=== PATIENT | male | born 2000 | race African-American/Black ===

== ENCOUNTER 2020-05-18 10:18 | Emergency (ER) | payer MEDICAID, OTHER ==
[2020-05-18 10:30] VITALS: BP 107/67
--- NOTE | 2020-05-18 10:47 | ER Document Report ---
ED Respiratory Problem - General Chief Complaint: Rib Pain Stated Complaint: RIB PAIN Time Seen by Provider: 05/18/20 10:40 Primary Care Provider: ALMA AVERY MD [EMERITUS] - Follow up as needed Notes: CHIEF COMPLAINT: Right-sided chest discomfort with breathing HPI: 20-year-old male who is otherwise healthy presenting to the emergency department for evaluation of right-sided chest discomfort with breathing today. [place] fine yesterday. States he had an anxiety attack 2 days ago and EMS was called but once they talk to the patient he began to feel better. No trauma. No fever no cough no recent illness. Patient states that he is not short of breath. Patient states he does not actually have a pain but feels like he just has to take a deeper breath to catch his breath. No abdominal pain nausea vomiting. ROS: See HPI - all other systems were reviewed and are otherwise negative Constitutional: no fever Eyes: no drainage, no blurred vision ENT: no runny nose, no sore throat Cardiovascular: + chest pain Resp: no SOB, no cough GI: no vomiting, no diarrhea, no abdominal pain : no dysuria Integumentary: no rash Allergy: no hives Musculoskeletal: no extremity pain or swelling Neurological: no numbness/tingling, no weakness MEDICATIONS: I agree with the patient medications as charted by the RN. ALLERGIES: I agree with the allergies as charted by the RN. PAST MEDICAL HISTORY/PAST SURGICAL HISTORY: Reviewed and agree as charted by RN. SOCIAL HISTORY: Reviewed and agree as charted by RN. FAMILY HISTORY: No significant familial comorbid conditions directly related to patient complaint EXAM: Reviewed vital signs as charted by RN. CONSTITUTIONAL: Alert and oriented and responds appropriately to questions. Well-appearing; well-nourished HEAD: Normocephalic; atraumatic EYES: PERRL; Conjunctivae clear, sclerae non-icteric ENT: normal nose; no rhinorrhea; moist mucous membranes; pharynx without lesions noted, no uvula edema or deviation, no tonsillar hypertrophy, phonation normal NECK: Supple without meningismus; non-tender; no cervical lymphadenopathy, no masses CARD: RRR; no murmurs, no clicks, no rubs, no gallops; symmetric distal pulses RESP: Normal chest excursion without splinting or tachypnea; breath sounds clear and equal bilaterally; no wheezes, no rhonchi, no rales, pulse oximetry 99% on room air not hypoxic. No reproducible pain on palpation of the chest wall ABD/GI: Normal bowel sounds; non-distended; soft, non-tender, no rebound, no guarding; no palpable organomegaly or masses. BACK: The back appears normal and is non-tender to palpation, there is no CVA tenderness EXT: Normal ROM in all joints; non-tender to palpation; no cyanosis, no effusions, no edema SKIN: Normal color for age and race; warm; dry; good turgor; no acute lesions noted NEURO: Moves all extremities equally; Motor and sensory function intact PSYCH: The patient's mood and manner are appropriate. Grooming and personal hygiene are appropriate. MDM: 20-year-old otherwise healthy male presenting for feeling like he needs to take a deeper breath in today. No fever no cough lung sounds are clear to auscultation. No reproducible pain on palpation. Will obtain chest x-ray to evaluate for pneumothorax although patient really does not describe discomfort or pain or dyspnea. If chest x-ray negative will refer to PCP for follow-up. Patient reports an asthma history as a child - Related Data Allergies/Adverse Reactions: Shellfish * [Shellfish] Allergy (Verified 05/18/20 10:40) Past Medical History - Social History Smoking Status: Current Every Day Smoker Drug Abuse: Marijuana Family History: None Pulmonary Medical History: Reports: Hx Asthma - Immunizations Immunizations up to date: Yes Physical Exam - Vital signs Vitals: Temp Pulse Resp BP Pulse Ox 98.0 F 61 18 107/67 100 05/18/20 10:05/18/20 10:05/18/20 10:05/18/20 10:28 05/18/20 10:28 Course - Re-evaluation Re-evalutation: 05/18/20 11:07 Chest x-ray negative for acute findings I will write the patient for an albuterol inhaler given his prior asthma history although his lung sounds are clear today - Vital Signs Vital signs: Temp Pulse Resp BP Pulse Ox 98.0 F 61 18 107/67 100 05/18/20 10:28 05/18/20 10:28 05/18/20 10:28 05/18/20 10:28 05/18/20 10:28 Discharge - Discharge Clinical Impression: Respiratory abnormality, unspecified Condition: Stable Disposition: HOME, SELF-CARE Additional Instructions: Use the albuterol inhaler 2 puffs every 4 hours as needed for any shortness of breath. Follow-up with your primary care provider for reevaluation of your symptoms return for fever or significant shortness of breath Prescriptions: Albuterol Sulfate [Proair HFA Inhalation Aerosol 8.5 gm MDI] 2 puff IH Q4H PRN #1 mdi PRN Reason: Referrals: ALMA AVERY MD [EMERITUS] - Follow up as needed
--- NOTE | 2020-05-18 11:06 | RADIOLOGY REPORT (SQ) ---
EXAM DESCRIPTION: CHEST 2 VIEWS IMAGES COMPLETED DATE/TIME: 05/18/2020 10:50 am REASON FOR STUDY: right chest pain COMPARISON: None. TECHNIQUE: Frontal and lateral radiographic views of the chest acquired. NUMBER OF VIEWS: Two view. LIMITATIONS: None. FINDINGS: LUNGS AND PLEURA: No opacities, masses or pneumothorax. No pleural effusion. MEDIASTINUM AND HILAR STRUCTURES: No masses or contour abnormalities. HEART AND VASCULAR STRUCTURES: Heart normal size. No evidence for failure. BONES: No acute findings. HARDWARE: None in the chest. OTHER: No other significant finding. IMPRESSION: NO SIGNIFICANT RADIOGRAPHIC FINDING IN THE CHEST. TECHNICAL DOCUMENTATION: JOB ID: [id number] 2010 [employer]- All Rights Reserved Reading location - IP/workstation name: [email or web address]
== END 2020-05-18 11:10 | disposition home or self-care (01) ==
LOC: ER 10:18
DX: J45.909 Unspecified asthma, uncomplicated (principal); F17.200 Nicotine dependence, unspecified, uncomplicated; F12.10 Cannabis abuse, uncomplicated; Z91.013 Allergy to seafood
CPT/HCPCS: 71046; 99283

== ENCOUNTER 2020-05-29 19:15 | Emergency (ER) | payer SELFPAY ==
--- NOTE | 2020-05-29 19:55 | ER Document Report ---
ED Medical Screen (RME) - General Chief Complaint: Chest Pain Stated Complaint: CHEST PAIN Time Seen by Provider: 05/29/20 19:47 Mode of Arrival: Medic Information source: Patient Notes: 20-year-old male with history of asthma presenting via EMS for chest pain that began last night. Patient reports right-sided chest pain feels like a pressure. He states it has been intermittent. There are no associated symptoms. Patient denies any nausea, vomiting, shortness of breath, episodes of diaphoresis. The pain does not radiate. He has never had this pain before. The pain is worse with palpation. He denies any recent heavy lifting. Lung sounds clear and equal bilaterally. Patient is in no acute distress. I have greeted and performed a rapid initial assessment of this patient. A co mprehensive ED assessment and evaluation of the patient, analysis of test results and completion of the medical decision making process will be conducted by additional ED providers. I have specifically instructed the patient or family members with the patient to immediately return to any nursing staff should anything change in the patient's condition or with their chief complaint. - Related Data Allergies/Adverse Reactions: Shellfish * [Shellfish] Allergy (Verified 05/18/20 10:40) Past Medical History Pulmonary Medical History: Reports: Hx Asthma - Immunizations Immunizations up to date: Yes Physical Exam - Vital signs Vitals: Temp Pulse Resp BP Pulse Ox 98.0 F 58 L 16 123/81 100 05/29/20 19:41 05/29/20 19:41 05/29/20 19:41 05/29/20 19:41 05/29/20 19:41 Course - Vital Signs Vital signs: Temp Pulse Resp BP Pulse Ox 98.0 F 58 L 16 123/81 100 05/29/20 19:41 05/29/20 19:41 05/29/20 19:41 05/29/20 19:41 05/29/20 19:41
[2020-05-29 20:19] LABS: ABSOLUTE EOSINOPHILS # (AUTO) 0.1 10^3/uL (0.0-0.6); ABSOLUTE LYMPHOCYTES (AUTO) 1.6 10^3/uL (0.5-4.7); ABSOLUTE MONOCYTES (AUTO) 0.3 10^3/uL (0.1-1.4); BASOPHILS % (AUTO) 0.8 % (0-2); EOSINOPHILS % (AUTO) 2.2 % (0-6); HEMATOCRIT 41.7 % (37.9-51.0); HEMOGLOBIN 14.1 g/dL (13.5-17.0); LYMPHOCYTES % (AUTO) 51.9 % (13-45); MEAN CORPUSCULAR HEMOGLOBIN 29.5 pg (27.0-33.4); MEAN CORPUSCULAR HGB CONC 33.8 g/dL (32.0-36.0); MEAN CORPUSCULAR VOLUME 87 fl (80-97); MONOCYTES % (AUTO) 10.9 % (3-13); PLATELET COUNT 231 10^3/uL (150-450); RED BLOOD COUNT 4.78 10^6/uL (4.35-5.55); RED CELL DISTRIBUTION WIDTH 14.2 % (11.5-14.0); SEGMENTED NEUTROPHILS % (AUTO) 34.2 % (42-78); TOTAL CELLS COUNTED % (AUTO) 100 %
--- NOTE | 2020-05-29 20:33 | RADIOLOGY REPORT (SQ) ---
EXAM DESCRIPTION: X-RAY CHEST- two views CLINICAL HISTORY: Chest pain COMPARISON: May 18, 2020 TECHNIQUE: Two views of the chest. FINDINGS: There are no discrete air space infiltrates, pneumothoraces or pleural effusions. The pulmonary vascularity is normal. The cardiomediastinal silhouette is normal in size. No suspicious lytic or blastic osseous lesions are identified. Scoliotic curvature of the thoracic spine is grossly stable when compared to prior study. IMPRESSION: There are no acute lung parenchymal findings.
[2020-05-29 20:36] LABS: ALBUMIN 4.4 g/dL (3.5-5.0); ALKALINE PHOSPHATASE 75 U/L (38-126); ANION GAP 8 (5-19); ASPARTATE AMINO TRANSFERASE 30 U/L (17-59); BILIRUBIN,DIRECT 0.2 mg/dL (0.0-0.4); BILIRUBIN,TOTAL 0.3 mg/dL (0.2-1.3); BLOOD UREA NITROGEN 10 mg/dL (7-20); CALCIUM 9.8 mg/dL (8.4-10.2); CARBON DIOXIDE 29 mmol/L (22-30); CHLORIDE 101 mmol/L (98-107); GLUCOSE 89 mg/dL (75-110); POTASSIUM 4.3 mmol/L (3.6-5.0); TOTAL PROTEIN 7.6 g/dL (6.3-8.2)
[2020-05-29] MEDS ORDERED: METHOCARBAMOL 750 MG TABLET PO ONE (23:33)
--- NOTE | 2020-05-29 23:36 | ER Document Report ---
ED General - General Chief Complaint: Chest Pain Stated Complaint: CHEST PAIN Time Seen by Provider: 05/29/20 19:47 Primary Care Provider: JIMBO OCHOA MD [HONORARY] - Follow up as needed Mode of Arrival: Medic - HPI Quality of pain: Other - See HPI Context: This is a 20-year-old male with a history of asthma presenting to the emergency department complaining of right-sided chest pain that has been present for approximately 2 days. Patient describes the pain as sharp and intermittent, and rates it as a 3 out of 5 in terms of severity. Patient states he has not had pain like this in the past. Patient denies history of spontaneous pneumothorax, history of PE. Patient states that he is not done any heavy lifting or incurred any trauma recently that might account for his symptoms. Patient denies exacerbating or mitigating factors. Patient denies fever, chills, wheezing, shortness of breath, history of COVID-19 infection, known exposure to persons positive for Covid 19 or known exposure to persons under investigation for COVID-19. Associated symptoms: Other - See HPI Exacerbated by: Other - See HPI Relieved by: Other - See HPI Similar symptoms previously: No - Related Data Allergies/Adverse Reactions: Shellfish * [Shellfish] Allergy (Verified 05/18/20 10:40) Home Medications: albuterol Past Medical History - General Information source: Patient - Social History Smoking Status: Former Smoker Chew tobacco use (# tins/day): No Frequency of alcohol use: None Drug Abuse: None Lives with: Family Family History: None, Reviewed & Not Pertinent Patient has suicidal ideation: No Patient has homicidal ideation: No Pulmonary Medical History: Reports: Hx Asthma - Immunizations Immunizations up to date: Yes Review of Systems - Review of Systems Constitutional: No symptoms reported EENT: No symptoms reported Cardiovascular: Chest pain Respiratory: No symptoms reported Gastrointestinal: No symptoms reported Genitourinary: No symptoms reported Male Genitourinary: No symptoms reported Musculoskeletal: No symptoms reported Skin: No symptoms reported Hematologic/Lymphatic: No symptoms reported Neurological/Psychological: No symptoms reported -: Yes All other systems reviewed and negative Physical Exam - Vital signs Vitals: Temp Pulse Resp BP Pulse Ox 98.0 F 58 L 16 123/81 100 05/29/20 19:41 05/29/20 19:41 05/29/20 19:41 05/29/20 19:41 05/29/20 19:41 - Notes Notes: CONSTITUTIONAL [Vital signs reviewed, Patient appears comfortable, Alert and oriented X 3, Normal stature.] HEAD [Atraumatic, Normocephalic.] EYES [Eyes are normal to inspection, No discharge from eyes, Extraocular muscles intact, Sclera are normal, Conjunctiva are normal.] ENT Nose examination normal, Mouth normal to inspection.] NECK [Normal ROM, No jugular venous distention, No meningeal signs, .] RESPIRATORY CHEST [Chest is nontender, Breath sounds normal, No respiratory distress.] CARDIOVASCULAR [RRR, No murmurs, Normal S1 S2, No rub, No gallop.] ABDOMEN [Abdomen is nontender, No pulsatile masses, No other masses, Bowel sounds normal, No distension, No peritoneal signs, No hernias.] BACK [There is no CVA Tenderness, There is no tenderness to palpation, Normal inspection.] UPPER EXTREMITY [Inspection normal, No cyanosis, No clubbing, No edema, 2+ radial pulses.] LOWER EXTREMITY [Inspection normal, No cyanosis, No clubbing, No edema, No calf tenderness, 2+ femoral pulses.] NEURO [No focal motor deficits, No focal sensory deficits, Speech normal.] SKIN [Skin is warm, Skin is dry, Skin is normal color.] PSYCHIATRIC [Normal affect. ] Course - Re-evaluation Re-evalutation: 05/29/20 23:43 Results of ED MSE discussed with patient. All questions were answered prior to discharge. Emergency signs and symptoms, reasons to return to the emergency department discussed with patient. - Vital Signs Vital signs: Temp Pulse Resp BP Pulse Ox 98.0 F 65 14 119/84 99 05/29/20 22:32 05/29/20 22:32 05/29/20 22:32 05/29/20 22:32 05/29/20 22:32 - Laboratory Result Diagrams: 05/29/20 20:03 05/29/20 20:03 Laboratory results interpreted by me: 05/29/20 20:03 WBC 3.0 L RDW 14.2 H Lymph % (Auto) 51.9 H Absolute Neuts (auto) 1.0 L Seg Neutrophils % 34.2 L - Diagnostic Test Radiology reviewed: Reports reviewed - EKG Interpretation by Me Additional EKG results interpreted by me: 05/29/20 23:37 EKG obtained on 05/29/2020 at 1923 hrs. was interpreted by this MD. Findings: Normal sinus rhythm, rate 62, VT interval appears to be within normal limits, P waves proceed QRS complexes, QRS complexes appear narrow, QTC is 398, there are no obvious patterns of ST segment elevation, depression or reciprocal change to suggest acute myocardial ischemia or infarction. Impression: Normal sinus rhythm with nonspecific ST segments. Discharge - Discharge Clinical Impression: Costochondral chest pain Condition: Stable Disposition: HOME, SELF-CARE Instructions: Chest Wall Pain ([facility]) Additional Instructions: Return to the Emergency Department without delay if any worse. HOME CARE INSTRUCTIONS & INFORMATION: Thank you for choosing us for your medical needs. We hope you're satisfied with the care you received. After you leave, you must properly care for your problem and, at the same time, observe its progress. Any condition can change. Some illnesses can change rapidly over hours or days. If your condition worsens, return to the Emergency Department or see your physician promptly. ABOUT YOUR X-RAYS AND EKG'S: If you had an EKG or X-rays taken, they have been read by the Emergency Physician. The X-rays and EKG's will also be read by a Radiologist or Health Safety Manager within 24 hours. If discrepancies are noted, you will be notified by telephone. Please be certain the ED has a correct telephone number & address where you can be reached. Also, realize that some fractures or abnormalities do not show up on initial X-rays. If your symptoms continue, see your physician. ABOUT YOUR LABORATORY TEST: If you had laboratory tests, the results have been reviewed by the Emergency Physician. Some test results (for example cultures) may not be available for several days. You will be contacted if any test result shows you need additional treatment. Please be certain the ED has a correct telephone number and address where you can be reached. ABOUT YOUR MEDICATIONS: You will receive instructions on how to take your medicine on the prescription label you receive. Additional information may be provided by the Pharmacy. If you have questions afterwards, call the ED for clarification or further instructions. Some prescribed medications may cause drowsiness. Do not perform tasks such as driving a car or operating machinery without consulting your Pharmacist. If you feel you need a refill of pain medication, your condition will need re-evaluation. Please do not call for a refill of any medication. ABOUT YOUR SIGNATURE: Signature of this document acknowledges to followin. Understanding that you received emergency treatment and that you may be released before al medical problems are known or treated. Please be certain the ED has a correct phone number & address where you can be reached. 2. Acknowledgement that you will arrange for follow-up care as recommended. 3. Authorization for the Emergency Physician to provide information to your follow-up Physician in order to maximize your care. AT ANY TIME, IF YOUR SYMPTOMS CHANGE SIGNIFICANTLY OR WORSEN OR YOU DEVELOP NEW SYMPTOMS, RETURN TO THE EMERGENCY DEPARTMENT IMMEDIATELY FOR RE-EVALUATION. OUR GOAL IS TO PROVIDE EXCELLENT MEDICAL CARE! WE HOPE THAT WE HAVE MET YOUR EXPECTATIONS DURING YOUR EMERGENCY DEPARTMENT VISIT AND THAT YOU FEEL YOU HAVE RECEIVED EXCELLENT CARE! Prescriptions: Methocarbamol [Robaxin 750 mg Tablet] 1,500 mg PO QID 4 Days #24 tablet Forms: Return to Work Referrals: JIMBO OCHOA MD [HONORARY] - Follow up as needed
[2020-05-30 00:14] VITALS: BP 114/84
--- NOTE | 2020-05-30 16:06 | EKG REPORT ---
SEVERITY:- NORMAL ECG - SINUS RHYTHM ST ELEV, PROBABLE NORMAL EARLY REPOL PATTERN : Confirmed by: Wade Garcia MD 30-May-2020 16:05:02
== END 2020-05-30 00:25 | disposition home or self-care (01) ==
LOC: ER 19:15
DX: M94.0 Chondrocostal junction syndrome [Tietze] (principal)
CPT/HCPCS: 93005; 99285; 36415; 85025; 80053; 84484; 71046; 93010; J3490

== ENCOUNTER 2020-07-24 10:39 | Emergency (ER) | payer SELFPAY ==
--- NOTE | 2020-07-24 11:59 | ER Document Report ---
ED Medical Screen (RME) - General Chief Complaint: Flank Pain Stated Complaint: LEFT FLANK PAIN - HPI Notes: 07/24/20 11:58 20-year-old male presents to ED for evaluation of left-sided lateral chest pain. Reports it is worse with range of motion. Denies trauma or injury. States it is more comfortable if he lays flat. Denies radiation into the front of his chest. Denies cold or cough symptoms. Denies concern for exposure to Covid. - Related Data Allergies/Adverse Reactions: Shellfish * [Shellfish] Allergy (Verified 05/18/20 10:40) shrimp Allergy (Verified 07/24/20 11:50) Swelling of Throat Home Medications: denies Past Medical History - Social History Chew tobacco use (# tins/day): No Frequency of alcohol use: None Drug Abuse: Marijuana Pulmonary Medical History: Reports: Hx Asthma - Immunizations Immunizations up to date: Yes Physical Exam - Vital signs Vitals: Temp Pulse Resp BP Pulse Ox 98.0 F 67 14 106/75 100 07/24/20 10:45 07/24/20 10:45 07/24/20 10:45 07/24/20 10:45 07/24/20 10:45 General: No acute distress. Alert and oriented x3. Sitting comfortably in a stretcher. Heart: Regular rate and rhythm. S1,S2. No murmurs, rubs, or gallops. Lungs: Clear to ausculation bilaterally. No wheezes, rhonchi, rales. Equal chest expansion. No retractions. Tenderness to left lateral ribs. Abdomen: Soft, nontender to palpation, nondistended. Positive bowel sounds in all 4 quadrants. No hepatosplenomegaly. No masses. No CVA tenderness bilaterally. Neuro: GCS 15. Moving all extremities without discomfort. Psych: Mood and affect appropriate. Course - Vital Signs Vital signs: Temp Pulse Resp BP Pulse Ox 98.0 F 67 14 106/75 100 07/24/20 10:45 07/24/20 10:45 07/24/20 10:45 07/24/20 10:45 07/24/20 10:45
[2020-07-24 12:33] LABS: ABSOLUTE LYMPHOCYTES (AUTO) 1.1 10^3/uL (0.5-4.7); ABSOLUTE MONOCYTES (AUTO) 0.3 10^3/uL (0.1-1.4); ABSOLUTE NEUT (AUTO) 1.4 10^3/uL (1.7-8.2); BASOPHILS % (AUTO) 0.6 % (0-2); EOSINOPHILS % (AUTO) 1.4 % (0-6); HEMATOCRIT 46.8 % (37.9-51.0); HEMOGLOBIN 15.2 g/dL (13.5-17.0); LYMPHOCYTES % (AUTO) 38.3 % (13-45); MEAN CORPUSCULAR HEMOGLOBIN 29.1 pg (27.0-33.4); MEAN CORPUSCULAR HGB CONC 32.5 g/dL (32.0-36.0); MEAN CORPUSCULAR VOLUME 90 fl (80-97); MONOCYTES % (AUTO) 11.7 % (3-13); PLATELET COUNT 232 10^3/uL (150-450); RED BLOOD COUNT 5.23 10^6/uL (4.35-5.55); RED CELL DISTRIBUTION WIDTH 14.2 % (11.5-14.0); TOTAL CELLS COUNTED % (AUTO) 100 %; WHITE BLOOD COUNT 2.9 10^3/uL (4.0-10.5)
--- NOTE | 2020-07-24 12:49 | RADIOLOGY REPORT (SQ) ---
EXAM DESCRIPTION: CHEST SINGLE VIEW IMAGES COMPLETED DATE/TIME: 07/24/2020 12:33 pm REASON FOR STUDY: chest pain COMPARISON: None. EXAM PARAMETERS: NUMBER OF VIEWS: One view. TECHNIQUE: Single frontal radiographic view of the chest acquired. RADIATION DOSE: NA LIMITATIONS: None. FINDINGS: LUNGS AND PLEURA: No opacities, masses or pneumothorax. No pleural effusion. MEDIASTINUM AND HILAR STRUCTURES: No masses. Contour normal. HEART AND VASCULAR STRUCTURES: Heart normal in size. Normal vasculature. BONES: No acute findings. HARDWARE: None in the chest. OTHER: No other significant finding. IMPRESSION: NO ACUTE RADIOGRAPHIC FINDING IN THE CHEST. TECHNICAL DOCUMENTATION: JOB ID: [id number] 2010 [employer]- All Rights Reserved Reading location - IP/workstation name: [email or web address]
[2020-07-24 12:58] LABS: ALBUMIN 4.6 g/dL (3.5-5.0); ALKALINE PHOSPHATASE 69 U/L (38-126); ANION GAP 6 (5-19); ASPARTATE AMINO TRANSFERASE 38 U/L (17-59); BILIRUBIN,DIRECT 0.1 mg/dL (0.0-0.4); BILIRUBIN,TOTAL 0.5 mg/dL (0.2-1.3); BLOOD UREA NITROGEN 11 mg/dL (7-20); CALCIUM 10.1 mg/dL (8.4-10.2); CARBON DIOXIDE 33 mmol/L (22-30); CHLORIDE 102 mmol/L (98-107); GLUCOSE 91 mg/dL (75-110); POTASSIUM 4.2 mmol/L (3.6-5.0); TOTAL PROTEIN 8.4 g/dL (6.3-8.2)
--- NOTE | 2020-07-24 13:51 | ER Document Report ---
HPI - HPI Time Seen by Provider: 07/24/20 13:33 Pain Level: 3 Context: Patient is a 20-year-old male who comes emergency department for chief complaint of left-sided chest pain. Pain is below the nipple and around to the side, worse with movement, feels better when he is lying flat on the opposite side. He denies trauma, cough, fever/chills, nausea/vomiting, or any other complaints. He takes no daily medications, past medical history of asthma, smokes occasional marijuana, denies cigarettes, alcohol, recreational drugs otherwise. - CONSTITUTIONAL Constitutional: DENIES: Fever, Chills - REPRODUCTIVE Reproductive: DENIES: : Past Medical History - Social History Smoking Status: Former Smoker Chew tobacco use (# tins/day): No Frequency of alcohol use: None Drug Abuse: Marijuana Family History: None, Reviewed & Not Pertinent Patient has homicidal ideation: No Pulmonary Medical History: Reports: Hx Asthma - Immunizations Immunizations up to date: Yes Vertical Provider Document - CONSTITUTIONAL General Appearance: WD/WN, No Apparent Distress - HEENT HEENT: Atraumatic, Normal ENT Exam, Normocephalic - NECK Neck: Normal Inspection - RESPIRATORY Respiratory: Breath Sounds Normal, No Respiratory Distress. negative: Chest Non-Tender - Tenderness over the left anterior inferior to lateral intercostal muscles which is specific and reproducible. No erythema, crepitus, or signs of trauma. - CARDIOVASCULAR Cardiovascular: Regular Rate, Regular Rhythm - GI/ABDOMEN Gastrointestinal: Abdomen Soft, Abdomen Non-Tender - BACK Back: Normal Inspection - MUSCULOSKELETAL/EXTREMETIES Musculoskeletal/Extremeties: MAEW, FROM, Non-Tender - NEURO Level of Consciousness: Awake, Alert, Appropriate Motor/Sensory: No Motor Deficit, No Sensory Deficit - DERM Integumentary: Warm, Dry, No Rash Course - Re-evaluation Re-evalutation: Patient is talkative and well-appearing. Vital signs unremarkable. Lungs clear. Patient is very specific point tenderness in the intercostal muscles along the left lower ribs inferiorly and laterally. No signs of trauma. No reported trauma. Chest x-ray, EKG, troponin, CBC, chemistry reviewed from triage and unremarkable. Very low suspicion of concerning intrathoracic emergency. Discussed with patient, patient be treated for chest wall pain, discussed follow-up and return precautions. Patient states understanding and agreement. - Vital Signs Vital signs: Temp Pulse Resp BP Pulse Ox 98.0 F 67 14 106/75 100 07/24/20 10:45 07/24/20 10:45 07/24/20 10:45 07/24/20 10:45 07/24/20 10:45 - Laboratory Results Result Diagrams: 07/24/20 12:19 07/24/20 12:19 Laboratory Results Interpreted: 07/24/20 07/24/20 12:19 12:19 WBC 2.9 L RDW 14.2 H Absolute Neuts (auto) 1.4 L Carbon Dioxide 33 H Total Protein 8.4 H Critical Laboratory Results Reviewed: No Critical Results - Radiology Results Critical Radiology Results Reviewed: No Critical Results - EKG Interpretation by Me Additional EKG results interpreted by me: EKG shows sinus rhythm and rate of 65, QTC 396, normal axis, no T wave inversions or ST segment changes in consecutive leads. There are J-point elevations in the anterior leads. Discharge - Discharge Clinical Impression: Left-sided chest pain, Chest wall pain Condition: Stable Disposition: HOME, SELF-CARE Additional Instructions: Your pain appears to be coming from your chest wall, from the muscles in between your ribs (intercostal muscles). I recommend heat to the area, rest, the anti- inflammatory and muscle x-rays prescribed. Symptoms should gradually resolve with time. Your white blood cell counts are again lower than usual, this needs to be monitored and rechecked with primary care, see primary care referral and call for your follow-up appointment. Return if you worsen including severe worsening pain, difficulty breathing, spiking fevers, passing out, or any other concerning or worsening symptoms. Prescriptions: Naproxen 500 mg PO BID PRN #20 tablet PRN Reason: Methocarbamol [Robaxin-750] 750 mg PO QID PRN #20 tablet PRN Reason: Forms: Return to Work
[2020-07-24 14:46] VITALS: BP 108/66
--- NOTE | 2020-07-24 21:28 | EKG REPORT ---
SEVERITY:- BORDERLINE ECG - SINUS RHYTHM PROBABLE LEFT ATRIAL ABNORMALITY ST ELEV, PROBABLE NORMAL EARLY REPOL PATTERN : Confirmed by: Lindsey Maya MD 24-Jul-2020 21:27:12
== END 2020-07-24 14:44 | disposition home or self-care (01) ==
LOC: ER 10:39
DX: R07.89 Other chest pain (principal); J45.909 Unspecified asthma, uncomplicated; F12.10 Cannabis abuse, uncomplicated; Z87.891 Personal history of nicotine dependence
CPT/HCPCS: 36415; 71045; 80053; 84484; 85025; 93005; 93010; 99285